=== PATIENT | male | born 1980 | race Caucasian/White ===

== ENCOUNTER 2025-01-04 09:53 | Emergency (ER) | payer OTHER, SELFPAY ==
[2025-01-04 10:06] VITALS: BP 128/88; PULSE 70; RESP 20; TEMP 37.2; O2SAT 100
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
[2025-01-04] MEDS: TETANUS,DIPHTHERIA,AC PERTUSSIS ADULT (0.5 ML) BOOSTRIX IM (10:27)
== END 2025-01-04 10:45 | disposition home or self-care (01) ==
PROVIDERS: Emergency Provider Registered Nurse
DX: S80.211A Abrasion, right knee, initial encounter (principal); V54.5XXA Driver of pick-up truck or van injured in collision with heavy transport vehicle or bus in traffic accident, initial encounter; R04.0 Epistaxis; J34.89 Other specified disorders of nose and nasal sinuses; M25.561 Pain in right knee; M40.203 Unspecified kyphosis, cervicothoracic region; Z23 Encounter for immunization
CPT/HCPCS: 90471; 90715; 99212; G0463